=== PATIENT | male | born 1985 | race Asian ===

== ENCOUNTER 2023-12-04 10:24 | Emergency (ER) | payer BC, MEDICAID ==
[~2023-12-04] VITALS: Ht 185.4 cm; Wt 97.7 kg
[2023-12-04 10:47] VITALS: BP 123/95; PULSE 117; RESP 19; TEMP 101.4
[2023-12-04] MEDS ORDERED: IBUPROFEN 600 MG TAB PO ONE (11:50)
[2023-12-04 12:30] LABS: BASOPHILS % (AUTO) 0.2 % (0.0-2.0); EOSINOPHILS # (AUTO) 0.1 K/uL (0-0.4); EOSINOPHILS % (AUTO) 0.6 % (0.0-4.0); HEMATOCRIT 45.7 % (36-52); HEMOGLOBIN 15.7 g/dL (12.0-18.0); LYMPHOCYTES # (AUTO) 1.7 K/uL (2.0-11.5); LYMPHOCYTES % (AUTO) 8.3 % (20.5-51.1); MEAN CORPUSCULAR HEMOGLOBIN 31 pg (27-31); MEAN CORPUSCULAR HGB CONC 34 g/dL (33-37); MONOCYTES # (AUTO) 1.2 K/uL (0.8-1.0); MONOCYTES % (AUTO) 5.9 % (1.7-9.3); NEUTROPHILS # (AUTO) 17.2 K/uL (1.8-7.7); PLATELET COUNT (AUTO) 254 K/uL (140-450); RED BLOOD CELL COUNT(AUTO) 5.14 MIL/uL (4.20-6.10); WHITE BLOOD COUNT (AUTO) 20.2 K/uL (4.8-10.8)
[2023-12-04 12:36] LABS: ANION GAP 7.2 (8-16); CALCIUM 9.1 mg/dL (8.5-10.1); CARBON DIOXIDE 32.8 mmol/L (21-32)
[2023-12-04 13:29] LABS: FLU A ANTIGEN negative (NEGATIVE); FLU B ANTIGEN NEGATIVE (NEGATIVE)
[2023-12-04] MEDS ORDERED: AMOX500C25 PO (13:56)
[2023-12-04 14:10] VITALS: BP 116/80; PULSE 74; RESP 17; O2SAT 98
== END 2023-12-04 14:10 | disposition home or self-care (01) ==
LOC: MED 10:24
DX: J02.0 Streptococcal pharyngitis (principal); Z20.822 Contact with and (suspected) exposure to COVID-19; E11.9 Type 2 diabetes mellitus without complications; I10 Essential (primary) hypertension; Z79.4 Long term (current) use of insulin; Z79.899 Other long term (current) drug therapy
CPT/HCPCS: 36415; 80048; 82948; 85025; 87081; 99283